=== PATIENT | female | born 1990 | race Caucasian/White ===

== ENCOUNTER 2023-04-18 16:00 | Outpatient (CLI) | payer BC | END 2023-04-18 16:01 | disposition home or self-care (01) | LOC: SLEEPLAB 16:00 | PROVIDERS: ATTEND Family Medicine | DX: G47.33 Obstructive sleep apnea (adult) (pediatric) (principal); G47.10 Hypersomnia, unspecified; G47.61 Periodic limb movement disorder; F41.9 Anxiety disorder, unspecified; R53.83 Other fatigue; R51.9 Headache, unspecified | CPT/HCPCS: 95800 ==

== ENCOUNTER 2023-05-18 16:00 | Outpatient (CLI) | payer BC | END 2023-05-18 16:01 | disposition home or self-care (01) | LOC: SLEEPLAB 16:00 | PROVIDERS: ATTEND Family Medicine | DX: G47.33 Obstructive sleep apnea (adult) (pediatric) (principal); G25.81 Restless legs syndrome; G47.61 Periodic limb movement disorder; F41.9 Anxiety disorder, unspecified; R51.9 Headache, unspecified; R53.83 Other fatigue; G47.10 Hypersomnia, unspecified | CPT/HCPCS: 95810 ==